=== PATIENT | male | born 1975 | race Caucasian/White ===

== ENCOUNTER 2016-11-07 02:19 | Emergency (ER) | payer OTHER ==
--- NOTE | 2016-11-07 04:33 | ED PDOC ---
HPI: Psych/Substance Abuse Time Seen by Provider: 11/07/16 02:37 Chief Complaint (Nursing): Alcohol Ingestion ED Caveat: Acuity of Condition History Per: Patient History/Exam Limitations: intoxication Onset/Duration Of Symptoms: Hrs Current Symptoms Are (Timing): Still Present Additional Complaint(s): PT. admits to drinking tonight at bar. Denies SI/HI. No drugs. States he hit his R wrist against something but cant' remember what. Denies head injury or other injuries. Past Medical History Reviewed: Historical Data, Nursing Documentation Vital Signs: Last Vital Signs Temp 98 F 11/07/16 02:29 Pulse 82 11/07/16 02:29 Resp 18 11/07/16 02:29 BP 132/76 11/07/16 02:29 Pulse Ox 99 11/07/16 02:29 - Family History Family History: States: Unknown Family Hx - Allergies Allergies/Adverse Reactions: Allergies Allergy/AdvReac Type Severity Reaction Status Date / Time No Known Allergies Allergy Verified 11/07/16 02:29 Review of Systems Review Of Systems: ROS cannot be obtained secondary to pt's inabilty to answer questions. Physical Exam - Reviewed Nursing Documentation Reviewed: Yes Vital Signs Reviewed: Yes - Physical Exam Appears: Positive for: Well, Non-toxic, No Acute Distress Head Exam: Positive for: ATRAUMATIC, NORMAL INSPECTION, NORMOCEPHALIC Skin: Positive for: Normal Color, Warm, DRY Eye Exam: Positive for: EOMI, Normal appearance, PERRL ENT: Positive for: Normal ENT Inspection Neck: Positive for: Normal, Painless ROM Cardiovascular/Chest: Positive for: Regular Rate, Rhythm Respiratory: Positive for: CNT, Normal Breath Sounds Gastrointestinal/Abdominal: Positive for: Normal Exam, Bowel Sounds, Soft Back: Positive for: Normal Inspection Extremity: Positive for: Normal ROM, Other (Abrasion to R wrist, FROM, NV intact ). Negative for: Tenderness Neurologic/Psych: Positive for: Alert, Oriented - ECG O2 Sat by Pulse Oximetry: 99 Medical Decision Making Medical Decision Making: Pt. intoxicated, however steady gait, speaking full sentences. Will d/c into custody of brother who is at bedside. Disposition - Clinical Impression Clinical Impression: Alcohol abuse - Disposition Referrals: Alcoholics Anonymous [Outside] Disposition Time: 02:43 Condition: STABLE Instructions: Alcohol Intoxication (ED)
[2016-11-07 04:43] VITALS: BP 132/76; PULSE 82; RESP 18; TEMP 98; O2SAT 99
== END 2016-11-08 04:33 | disposition home or self-care (01) ==
LOC: H.EDERROR 02:19
DX: F10.129 Alcohol abuse with intoxication, unspecified (principal)